=== PATIENT | female | born 1950 | race Caucasian/White ===

== ENCOUNTER 2018-10-24 15:44 | Emergency (ER) | payer MEDICARE, OTHER ==
[~2018-10-24] VITALS: Ht 172.7 cm; Wt 92.5 kg
[~2018-10-24 15:44] MED LIST: ALPR.5 PO; ASPI325 PO; ATOR20 PO; DIGO.25 PO; ESTPRO5; FENO145 PO; Glucophage1000 MG PO; INSULIN; LAVAP17G PO; LEVSOD100; LEVSOD75 PO; LISI5 PO; MECL25 PO; METO50 PO; Norco 5-325 Ta1 EACH PO; PROM25 PO; RANI150 PO; SERT50 PO
[2018-10-24] MEDS ORDERED: Fleet Enema132 ML PR (17:44)
[2018-10-24] MEDS ORDERED: Miralax17 GM PO (17:44)
== END 2018-10-24 17:55 | disposition home or self-care (01) ==
LOC: ER 15:44
DX: K59.00 Constipation, unspecified (principal); Z79.899 Other long term (current) drug therapy; Z79.84 Long term (current) use of oral hypoglycemic drugs; Z79.82 Long term (current) use of aspirin; I48.91 Unspecified atrial fibrillation; E11.9 Type 2 diabetes mellitus without complications
CPT/HCPCS: 74019; 99283-25

== ENCOUNTER → 2020-04-26 | Outpatient (CLI) | payer MEDICARE, OTHER ==
[~2020-04-26] MED LIST changes: +Fleet Enema132 ML PR; +Miralax17 GM PO
== END | disposition home or self-care (01) ==
LOC: LAB SHORT 10:17 → LAB EV 10:17
DX: L08.9 Local infection of the skin and subcutaneous tissue, unspecified (principal)
CPT/HCPCS: 87070; 87077; 87147; 87186; 87205

== ENCOUNTER 2025-01-07 18:10 | Inpatient (IN) | payer MEDICARE, OTHER ==
[~2025-01-07] VITALS: Ht 175.3 cm; Wt 115.3 kg
[~2025-01-07 18:10] MED LIST changes: +LEVSOD150 PO; -LEVSOD75 PO; +METO100ER PO; -METO50 PO
[2025-01-07 18:56] LABS: BASOPHILS ABSOLUTE AUTO 0.03 K/mm3 (0.00-0.23); BASOPHILS PERCENT AUTO 0 % (0-2); EOSINOPHILS ABSOLUTE AUTO 0.04 K/mm3 (0.00-0.68); EOSINOPHILS PERCENT AUTO 0 % (0-6); Hematocrit 38.4 % (33.0-51.0); Hemoglobin 11.7 g/dL (11.5-16.0); IMMATURE GRAN ABSOLUTE AUTO 0.04 K/mm3 (0.00-0.10); IMMATURE GRAN PERCENT AUTO 0 % (0-1); LYMPHOCYTES PERCENT AUTO 8 % (21-46); MONOCYTES ABSOLUTE AUTO 0.77 K/mm3 (0.16-1.47); MONOCYTES PERCENT AUTO 7 % (4-13); Mean Corpuscular HGB 29.3 pg (26.0-34.0); Mean Corpuscular HGB Conc 30.5 g/dL (31.5-36.5); Mean Corpuscular Volume 96 fL (80-100); Mean Platelet Volume 10.2 fL (9.1-12.4); NEUTROPHILS ABSOLUTE AUTO 9.39 K/mm3 (1.96-9.15); NEUTROPHILS PERCENT AUTO 84 % (41-73); Platelet Count 165 K/mm3 (150-400); RDW Coefficient Variation 16.4 % (11.7-14.2); RDW Standard Deviation 57.5 fL (35.1-46.3); White Blood Cell Count 11.17 K/mm3 (4.00-11.30)
[2025-01-07 19:32] LABS: Influenza A, PCR NEGATIVE (NEGATIVE); Influenza B, PCR NEGATIVE (NEGATIVE); Resp Syncytial Virus, PCR NEGATIVE (NEGATIVE); SARS-Cov-2 (COVID-19) PCR, MMC NEGATIVE (NEGATIVE)
[2025-01-07 20:09] LABS: Albumin, Blood 2.7 g/dL (3.4-5.0); Bilirubin, Total 1.4 mg/dL (0.1-1.0); Bun/Creatinine Ratio 26.2 (12.0-20.0); Calcium, Blood 6.1 mg/dL (8.5-10.1); Creatinine, Blood 1.07 mg/dL (0.40-1.00); Globulin, Blood 2.8 g/dL (2.2-4.0); Potassium, Blood 3.6 mmol/L (3.5-5.5); Total Protein, Blood 5.5 g/dL (6.4-8.2)
[2025-01-07] MEDS ORDERED: Ipratropium/Albuterol SulF 2.5-0.5MG/3 ML Amp INH ONE (23:40)
[2025-01-08 00:34] LABS: Source, Urine Voided
[2025-01-08 00:38] LABS: Bilirubin, Urine Neg (Neg); Blood, Urine 4+ (Neg); Glucose Qualitative, Urine Neg (Neg); Ketones, Urine Neg (Neg); Leukocyte Esterase, Urine 2+ (Neg); Nitrite, Urine Pos (Neg); Protein, Urine 2+ (Neg); Specific Gravity, Urine 1.025 (1.003-1.022); Urobilinogen, Urine 1+ (Normal)
[2025-01-08 00:50] LABS: Appearance, Urine Hazy (Clear); Color, Urine Yellow (P-Yellow)
[2025-01-08 00:51] LABS: Bacteria Many /hpf; Red Blood Cells, Urine 0-2 /hpf (0-2); Squamous Epithelial Cells Rare /hpf (Few)
[2025-01-08] MEDS ORDERED: CefTRIAXone Sodium 2,000 MG in NS 100 ML IV ONE (01:10)
[2025-01-08] MEDS ORDERED: Ondansetron HCl 2 MG / ML 2ML Vial IV PRN (02:15)
[2025-01-08] MEDS ORDERED: Acetaminophen 325 MG TABLET PO PRN (02:15)
[2025-01-08 04:33] LABS: BASOPHILS ABSOLUTE AUTO 0.03 K/mm3 (0.00-0.23); BASOPHILS PERCENT AUTO 0 % (0-2); EOSINOPHILS PERCENT AUTO 0 % (0-6); Hematocrit 36.4 % (33.0-51.0); Hemoglobin 11.5 g/dL (11.5-16.0); IMMATURE GRAN ABSOLUTE AUTO 0.05 K/mm3 (0.00-0.10); IMMATURE GRAN PERCENT AUTO 0 % (0-1); LYMPHOCYTES ABSOLUTE AUTO 1.27 K/mm3 (0.84-5.20); LYMPHOCYTES PERCENT AUTO 10 % (21-46); MONOCYTES ABSOLUTE AUTO 1.03 K/mm3 (0.16-1.47); MONOCYTES PERCENT AUTO 8 % (4-13); Mean Corpuscular HGB 29.5 pg (26.0-34.0); Mean Corpuscular HGB Conc 31.6 g/dL (31.5-36.5); Mean Corpuscular Volume 93 fL (80-100); Mean Platelet Volume 9.8 fL (9.1-12.4); NEUTROPHILS ABSOLUTE AUTO 11.03 K/mm3 (1.96-9.15); NEUTROPHILS PERCENT AUTO 82 % (41-73); Platelet Count 146 K/mm3 (150-400); RDW Coefficient Variation 16.4 % (11.7-14.2); RDW Standard Deviation 55.8 fL (35.1-46.3); White Blood Cell Count 13.41 K/mm3 (4.00-11.30)
[2025-01-08 04:34] VITALS: BP 125/74
[2025-01-08 05:08] LABS: Albumin, Blood 3.1 g/dL (3.4-5.0); Albumin/Globulin Ratio 0.9 (0.8-1.8); Bilirubin, Total 1.6 mg/dL (0.1-1.0); Calcium, Blood 7.2 mg/dL (8.5-10.1); Creatinine, Blood 1.29 mg/dL (0.40-1.00); Globulin, Blood 3.3 g/dL (2.2-4.0); Magnesium, Blood 1.2 mg/dL (1.6-2.4); Potassium, Blood 4.3 mmol/L (3.5-5.5); Total Protein, Blood 6.4 g/dL (6.4-8.2)
--- NOTE | 2025-01-08 05:37 | NUR ---
ADMIT RECEIVED FROM ERPT A&OX4, HEEL SEAT SANDER=X4, PUPILS ROUND REACTIVE TO LIGHT. PT HAS SCATTERED SMALL BRUISES ON ABD, SCATTERED SMALL SCABS. SCAB TO L ELBOS, RED RASH TO R ARMIT AND DRY WOUND TO R ANTERIOR FOOT. PT HAS HEMOSIDERIN STAINING IN BLE WITH PITTING EDEMA. PT REPORTS SHE BRICEÑO SNOT FEEL THAT SHE IS MICKI TO TAKE CARE OF HERSELF AT HOME AND WAS WANTING TO LOOK AT PLACEMENT IN AN ASSISTED LIVING FACILITY. 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 PT REPORTS A DRY COUGH AT TIMES, IS ON 2L NC BUT DOES NOT USE HOME O2. ABD SNT, BLBS=CTA, HRR.
[2025-01-08 07:22] VITALS: BP 122/77
[2025-01-08] MEDS ORDERED: Furosemide 10 MG / ML 2ML Vial IV SCH (09:00)
[2025-01-08] MEDS ORDERED: Enoxaparin 40 MG/0.4 ML SYR SC SCH (09:00)
[2025-01-08] MEDS ORDERED: Magnesium Sulf 2 GM/Water 50ML 50 ML IV ONE (09:10)
[2025-01-08] MEDS ORDERED: NS 250 ML IV PRN (09:20)
[2025-01-08] MEDS ORDERED: Miconazole Nitrate 2% 85 GM PWD TOP SCH (09:20)
[2025-01-08 16:03] VITALS: BP 121/76
--- NOTE | 2025-01-08 18:02 | NUR ---
SHIFT SUMMARY PT REFUSED TO GET OOB TODAY. INCONT OF URINE AND ATTENDS CHANGED T/O DAY NEEDED ALONG WITH REPOSITIONING. PT ASSISTS WITH REPOSITIONING. DESAT ON RA WHEN TRIALED TO THE MID 80S. SATING WELL IN THE 90S ON 2L O2 VIA NC. NO OTHER ACUTE CHANGES IN ASSESSMENT AT THIS TIME. VS REVIEWED. CALL LIGHT IN REACH. DENIES OTHER NEEDS AT THIS TIME.
[2025-01-08 19:28] VITALS: BP 116/71
[2025-01-08] MEDS ORDERED: Insulin Glargine-Yfgn 100 Unit/mL 3 ML SYR SC SCH (21:00)
[2025-01-08] MEDS ORDERED: CefTRIAXone Sodium 1,000 MG in NS 100 ML IV SCH (21:00)
--- NOTE | 2025-01-09 03:31 | NUR ---
SHIFT SUMMARY: A&OX4. PT LUNG SOUNDS WERE CLEAR TO DIMINISHED IN THE BASES. WEANED PT O2 TO 1L THIS SHIFT. 1+ EDEMA NOTED TO BLE, LEGS ELEVATED WITH PILLOWS. DENIES ANY RESPIRATORY DISTRESS, CP, OR PAIN. PT EXPRESSED NO OTHER CONCERNS AT THIS TIME. CALL LIGHT IS WITHIN REACH. BED ALARM IS ON. BED IS LOW AND LOCKED.
[2025-01-09 05:08] VITALS: BP 123/91
[2025-01-09] MEDS ORDERED: Levothyroxine Sodium 0.15 MG Tab PO SCH (06:00)
[2025-01-09 06:26] LABS: BASOPHILS ABSOLUTE AUTO 0.02 K/mm3 (0.00-0.23); BASOPHILS PERCENT AUTO 0 % (0-2); EOSINOPHILS ABSOLUTE AUTO 0.13 K/mm3 (0.00-0.68); EOSINOPHILS PERCENT AUTO 2 % (0-6); Hematocrit 36.4 % (33.0-51.0); Hemoglobin 11.4 g/dL (11.5-16.0); IMMATURE GRAN ABSOLUTE AUTO 0.04 K/mm3 (0.00-0.10); IMMATURE GRAN PERCENT AUTO 1 % (0-1); LYMPHOCYTES ABSOLUTE AUTO 1.11 K/mm3 (0.84-5.20); LYMPHOCYTES PERCENT AUTO 14 % (21-46); MONOCYTES ABSOLUTE AUTO 0.72 K/mm3 (0.16-1.47); MONOCYTES PERCENT AUTO 9 % (4-13); Mean Corpuscular HGB 29.5 pg (26.0-34.0); Mean Corpuscular HGB Conc 31.3 g/dL (31.5-36.5); Mean Corpuscular Volume 94 fL (80-100); NEUTROPHILS ABSOLUTE AUTO 6.03 K/mm3 (1.96-9.15); NEUTROPHILS PERCENT AUTO 75 % (41-73); Platelet Count 133 K/mm3 (150-400); RDW Coefficient Variation 16.4 % (11.7-14.2); RDW Standard Deviation 56.5 fL (35.1-46.3); Red Blood Cell Count 3.86 M/mm3 (3.80-5.20); White Blood Cell Count 8.05 K/mm3 (4.00-11.30)
[2025-01-09 06:48] LABS: Bun/Creatinine Ratio 24.8 (12.0-20.0); Calcium, Blood 7.5 mg/dL (8.5-10.1); Creatinine, Blood 1.25 mg/dL (0.40-1.00); Potassium, Blood 3.9 mmol/L (3.5-5.5)
[2025-01-09 07:27] VITALS: BP 133/90
[2025-01-09] MEDS ORDERED: Docusate Sodium/Senna 1 Tab PO PRN (07:45)
[2025-01-09] MEDS ORDERED: Furosemide 10 MG/ML 4ML Vial IV SCH (09:00)
[2025-01-09] MEDS ORDERED: Metoprolol Succinate 50 MG TABCR PO SCH (09:00)
[2025-01-09] MEDS ORDERED: Rivaroxaban 10 MG Tab PO SCH (09:00)
[2025-01-09] MEDS ORDERED: Atorvastatin 10 MG Tab PO SCH (09:00)
[2025-01-09] MEDS ORDERED: Bisacodyl 5 MG TabEC PO PRN (12:25)
[2025-01-09] MEDS ORDERED: Bisacodyl 10 MG Supp PR PRN (12:25)
[2025-01-09 14:08] VITALS: BP 91/75
--- NOTE | 2025-01-09 18:19 | NUR ---
SUMMARY- PT A/O X4, PLEASANT AND COOPERATIVE. UP TODAY TO THE BEDSIDE COMMODE THAN TO THE CHAIR WITH 2 PERSON SBA, GAIT/WALKER PIVOT TX. PT SAT UP IN THE CHAIR FOR ALL 3 MEALS. PT HAS LE EDEMA, DIURESING ON LASIX. STARTED MEDS FOR BOWEL CARE, VERY SMALL RESULTS SO FAR. INCONT FOR MOST PART,USING A PUREWICK. VSS. PLAN FOR SNF [place] LIKELY TOMORROW. WILL REPORT TO NADIR GIANG.
[2025-01-09 19:31] VITALS: BP 130/89
[2025-01-09] MEDS ORDERED: Polyethylene Glycol 3350 17 gm PO SCH (21:00)
--- NOTE | 2025-01-10 02:22 | NUR ---
ATTEMPTED TO WEAN PT TO ROOM AIR, BUT O2 SATS DROPPED FROM MID 90'S TO 85%. 02 AT 1L NC CONTINUES WITH O2 SATS LOW TO MID 90'S.
[2025-01-10 04:38] VITALS: BP 130/84
--- NOTE | 2025-01-10 06:09 | NUR ---
SHIFT SUMMARY PT SLEPT LONG INTERVALS DURING THE NIGHT. BOWEL CARE PROVIDED YESTERDAY AND PT HAD SMALL SOFT INCONT STOOL DURING THE NIGHT. PUREWICK DRAINING YELLOW URINE. DRESSING TO RIGHT ANKLE C/D/I. BED IN LOWEST POSITION, CALL LIGHT WITHIN REACH, SIDERAILS UP X3.
[2025-01-10 06:10] LABS: BASOPHILS ABSOLUTE AUTO 0.02 K/mm3 (0.00-0.23); BASOPHILS PERCENT AUTO 0 % (0-2); EOSINOPHILS ABSOLUTE AUTO 0.14 K/mm3 (0.00-0.68); EOSINOPHILS PERCENT AUTO 2 % (0-6); Hematocrit 33.5 % (33.0-51.0); Hemoglobin 10.6 g/dL (11.5-16.0); IMMATURE GRAN ABSOLUTE AUTO 0.02 K/mm3 (0.00-0.10); IMMATURE GRAN PERCENT AUTO 0 % (0-1); LYMPHOCYTES ABSOLUTE AUTO 1.08 K/mm3 (0.84-5.20); LYMPHOCYTES PERCENT AUTO 17 % (21-46); MONOCYTES PERCENT AUTO 11 % (4-13); Mean Corpuscular HGB 29.7 pg (26.0-34.0); Mean Corpuscular HGB Conc 31.6 g/dL (31.5-36.5); Mean Corpuscular Volume 94 fL (80-100); Mean Platelet Volume 10.3 fL (9.1-12.4); NEUTROPHILS ABSOLUTE AUTO 4.25 K/mm3 (1.96-9.15); NEUTROPHILS PERCENT AUTO 68 % (41-73); Platelet Count 133 K/mm3 (150-400); Red Blood Cell Count 3.57 M/mm3 (3.80-5.20); White Blood Cell Count 6.21 K/mm3 (4.00-11.30)
[2025-01-10 06:29] LABS: Bun/Creatinine Ratio 23.9 (12.0-20.0); Calcium, Blood 7.3 mg/dL (8.5-10.1); Creatinine, Blood 1.13 mg/dL (0.40-1.00); Potassium, Blood 3.9 mmol/L (3.5-5.5)
[2025-01-10 07:51] VITALS: BP 127/84
--- NOTE | 2025-01-10 10:37 | NUR ---
RN NOTE 3 ATTEMPTS TO WEAN OFF 1L NC THIS SHIFT. LAST TIME AFTER SITTING UP IN CHAIR IN UPRIGHT POSITION. EACH TIME SATS DROPPED TO THE 80S, SOMETIMES 70S WITH GOOD WAVEFORM. O2 SAT RETURNED TO 90S QUICKLY ON 1L NC. ON CONTINUOUS PULSE OX.
[2025-01-10 14:47] VITALS: BP 129/75
--- NOTE | 2025-01-10 15:23 | NUR ---
Shift Summary Ms Lawrence is orientated x4. She has been up to the recliner twice today. She had some difficulty getting out of the bed, needing 2 people to assist, but once up with the walker and gait belt she was able to take several steps, maintaining her balance, she was able to sit safely in the recliner. Unable to wean off 1L nc oxygen today. Powerglide placed and CTPE done. Incontinent of urine, good volume, pure wick effective. Incontinent of small soft stool. Plan [facility]. in chair now, call light in reach.
--- NOTE | 2025-01-10 17:31 | NUR ---
Report given to Amber GIANG
[2025-01-10 17:48] VITALS: BP 154/83
[2025-01-10] MEDS ORDERED: Furosemide 10 MG/ML 4ML Vial IV SCH ×2 (18:00)
--- NOTE | 2025-01-10 18:23 | NUR ---
SHIFT SUMMARY TOOK OVER CARE FOR PREVIOUS RN., GOT REPORT FROM NURSE. PT A&OX4. PT ADMITTED DUE TO ACUTE RESP FAILURE WITH HYPOXIA. PT ON 1L OF O2 VIA N/C. PT TOOK OFF NC WHILE EATING AND PT DESATTED TO 80 S%. PT EDUCATED ON N/C USE. N/C IN NOSE. PT SATS 90%. THIS RN GAVE 1800 LASIX DOSE. PT SITTING COMFORTABLY IN CHAIR. CALL LIGHT IN REACH.
[2025-01-10 19:38] VITALS: BP 130/90
[2025-01-11 04:22] VITALS: BP 124/82
[2025-01-11 07:34] LABS: BASOPHILS ABSOLUTE AUTO 0.03 K/mm3 (0.00-0.23); BASOPHILS PERCENT AUTO 1 % (0-2); EOSINOPHILS ABSOLUTE AUTO 0.17 K/mm3 (0.00-0.68); EOSINOPHILS PERCENT AUTO 3 % (0-6); Hematocrit 32.5 % (33.0-51.0); Hemoglobin 10.2 g/dL (11.5-16.0); IMMATURE GRAN ABSOLUTE AUTO 0.01 K/mm3 (0.00-0.10); IMMATURE GRAN PERCENT AUTO 0 % (0-1); LYMPHOCYTES PERCENT AUTO 21 % (21-46); MONOCYTES ABSOLUTE AUTO 0.75 K/mm3 (0.16-1.47); MONOCYTES PERCENT AUTO 13 % (4-13); Mean Corpuscular HGB 29.4 pg (26.0-34.0); Mean Corpuscular HGB Conc 31.4 g/dL (31.5-36.5); Mean Corpuscular Volume 94 fL (80-100); Mean Platelet Volume 10.1 fL (9.1-12.4); NEUTROPHILS ABSOLUTE AUTO 3.58 K/mm3 (1.96-9.15); NEUTROPHILS PERCENT AUTO 62 % (41-73); Platelet Count 142 K/mm3 (150-400); RDW Coefficient Variation 15.9 % (11.7-14.2); RDW Standard Deviation 55.2 fL (35.1-46.3); Red Blood Cell Count 3.47 M/mm3 (3.80-5.20); White Blood Cell Count 5.74 K/mm3 (4.00-11.30)
[2025-01-11 07:58] LABS: Calcium, Blood 7.4 mg/dL (8.5-10.1); Creatinine, Blood 1.13 mg/dL (0.40-1.00); Phosphorus, Blood 2.9 mg/dL (2.5-4.9); Potassium, Blood 3.9 mmol/L (3.5-5.5)
[2025-01-11 07:59] VITALS: BP 114/68
[2025-01-11 07:59] LABS: Magnesium, Blood 0.9 mg/dL (1.6-2.4)
[2025-01-11] MEDS ORDERED: Doxycycline Hyclate 100 MG TAB PO SCH (09:00)
[2025-01-11] MEDS ORDERED: Magnesium Sulf 2 GM/Water 50ML 50 ML IV ONE ×2 (09:25→21:40)
[2025-01-11 15:00] VITALS: BP 143/83
[2025-01-11 19:34] VITALS: BP 127/80
--- NOTE | 2025-01-11 19:41 | NUR ---
NO ACUTE CHANGES, REPORT TO PM RN, PT TO WORK WITH PATIENT, WAITING FOR PLACEMENT
[2025-01-12 03:40] VITALS: BP 117/80
--- NOTE | 2025-01-12 06:22 | NUR ---
SHIFT SUMMARY A&OX3-4. VSS. WITH POWERGLIDE GOOD FLOW. STILL AWAITS PLACEMENT AND FURTHER PLANS. WITH O2 1LPM ON CONT PULSE OXI MONITOR. HIGHLY INCONTINENT WITH PURWICK AND REPLACED. L KNEES EXTREMELY HURT WHEN TURNING. SLEPT WELL THROUGH NIGHT W/O ANY PROBLEM.
[2025-01-12 06:36] LABS: BASOPHILS ABSOLUTE AUTO 0.03 K/mm3 (0.00-0.23); BASOPHILS PERCENT AUTO 0 % (0-2); EOSINOPHILS ABSOLUTE AUTO 0.11 K/mm3 (0.00-0.68); EOSINOPHILS PERCENT AUTO 1 % (0-6); Hematocrit 35.1 % (33.0-51.0); Hemoglobin 10.9 g/dL (11.5-16.0); IMMATURE GRAN ABSOLUTE AUTO 0.03 K/mm3 (0.00-0.10); IMMATURE GRAN PERCENT AUTO 0 % (0-1); LYMPHOCYTES ABSOLUTE AUTO 1.35 K/mm3 (0.84-5.20); LYMPHOCYTES PERCENT AUTO 16 % (21-46); MONOCYTES ABSOLUTE AUTO 1.12 K/mm3 (0.16-1.47); MONOCYTES PERCENT AUTO 14 % (4-13); Mean Corpuscular HGB 29.5 pg (26.0-34.0); Mean Corpuscular HGB Conc 31.1 g/dL (31.5-36.5); Mean Corpuscular Volume 95 fL (80-100); Mean Platelet Volume 10.3 fL (9.1-12.4); NEUTROPHILS ABSOLUTE AUTO 5.59 K/mm3 (1.96-9.15); NEUTROPHILS PERCENT AUTO 68 % (41-73); Platelet Count 155 K/mm3 (150-400); RDW Coefficient Variation 15.9 % (11.7-14.2); RDW Standard Deviation 55.4 fL (35.1-46.3); Red Blood Cell Count 3.69 M/mm3 (3.80-5.20); White Blood Cell Count 8.23 K/mm3 (4.00-11.30)
[2025-01-12 06:55] LABS: Calcium, Blood 7.5 mg/dL (8.5-10.1); Creatinine, Blood 1.13 mg/dL (0.40-1.00); Magnesium, Blood 1.4 mg/dL (1.6-2.4)
[2025-01-12 07:40] VITALS: BP 121/91
[2025-01-12] MEDS ORDERED: Magnesium Sulf 2 GM/Water 50ML 50 ML IV ONE (10:35)
[2025-01-12 16:29] VITALS: BP 117/70
--- NOTE | 2025-01-12 17:31 | NUR ---
NO ACUTE CHANGES, PATIENT VOICED WANTING TO NOT BE A FULL CODE AND POSSIBLE HAVING PALLIATIVE CARE, PALLIATIVE CARE CONSULT ENTERED AND SPOKE WITH ROMÁN MULLIGAN, PAPER INFORMATION GIVEN TO PATIENT. PATIENT REPORTS FEELING DEPRESSED WITHOUT LIVING FAMILY AND DOG. PATIENT 10/10 PAIN WITH MINIMALY MOVEMENT, PURWIK INTACT, ICE TO RIGHT KNEE, VSS, WILL RELAY TO PM RN
[2025-01-12 19:07] VITALS: BP 139/77
[2025-01-13 04:47] VITALS: BP 114/66
--- NOTE | 2025-01-13 05:11 | NUR ---
NOC SUMMARY PT A&OX4, PLEASANT AND COOPERATIVE W/CARES, VSS, REMAINS ON 1L O2 W/SATS @ 94%, CURRENTLY USING PURWICK FOR VOIDING, DENIES PAIN BUT ENDORSES PAIN W/REPOSITIONING, SLEEPING AT THIS TIME, CALL LIGHT IN REACH, WILL CONT TO MONITOR UNTIL REPORT GIVEN TO ONCOMING NURSE.
[2025-01-13 05:41] LABS: BASOPHILS ABSOLUTE AUTO 0.02 K/mm3 (0.00-0.23); BASOPHILS PERCENT AUTO 0 % (0-2); EOSINOPHILS ABSOLUTE AUTO 0.04 K/mm3 (0.00-0.68); EOSINOPHILS PERCENT AUTO 1 % (0-6); Hematocrit 32.1 % (33.0-51.0); Hemoglobin 10.1 g/dL (11.5-16.0); IMMATURE GRAN ABSOLUTE AUTO 0.03 K/mm3 (0.00-0.10); IMMATURE GRAN PERCENT AUTO 0 % (0-1); LYMPHOCYTES PERCENT AUTO 15 % (21-46); MONOCYTES ABSOLUTE AUTO 1.22 K/mm3 (0.16-1.47); MONOCYTES PERCENT AUTO 14 % (4-13); Mean Corpuscular HGB 29.5 pg (26.0-34.0); Mean Corpuscular HGB Conc 31.5 g/dL (31.5-36.5); Mean Corpuscular Volume 94 fL (80-100); Mean Platelet Volume 10.1 fL (9.1-12.4); NEUTROPHILS ABSOLUTE AUTO 5.91 K/mm3 (1.96-9.15); NEUTROPHILS PERCENT AUTO 69 % (41-73); Platelet Count 147 K/mm3 (150-400); RDW Coefficient Variation 15.6 % (11.7-14.2); RDW Standard Deviation 54.3 fL (35.1-46.3); Red Blood Cell Count 3.42 M/mm3 (3.80-5.20); White Blood Cell Count 8.52 K/mm3 (4.00-11.30)
[2025-01-13 06:09] LABS: Magnesium, Blood 1.5 mg/dL (1.6-2.4)
[2025-01-13 06:10] LABS: Bun/Creatinine Ratio 25.7 (12.0-20.0); Calcium, Blood 7.5 mg/dL (8.5-10.1); Creatinine, Blood 1.09 mg/dL (0.40-1.00); Potassium, Blood 3.7 mmol/L (3.5-5.5)
[2025-01-13 07:05] VITALS: BP 106/62
[2025-01-13] MEDS ORDERED: Magnesium Sulf 2 GM/Water 50ML 50 ML IV STA (11:53)
--- NOTE | 2025-01-13 15:17 | NUR ---
PALLIATIVE CARE VISIT: REVIEWED MEDICAL RECORD, SPOKE TO PRIMARY RN, PRIOR TO VISIT. PRIMARY RN INDICATED PT WAS INQUIRING ABOUT END OF LIFE CARE. REVIEWED MEDICAL RECORD FOR HOSPICE ELIGIBILTY AND PT DOES NOT CURRENTLY MEET CRITERIA FOR ADMISSION TO HOSPICE. MET WITH PT IN HER ROOM. PT IS A/O X 4 AND AGREEABLE TO DISCUSS GOALS OF CARE AND AD/POLST COMPLETION. PT REPORTED YESTERDAY SHE FELT LIKE SHE WAS DYING AND WANTED TO GIVE UP. SHE STATES "I FELT DEPRESSED AND WAS SORRY FOR MYSELF". TODAY PT STATES SHE IS JUST FEELING NERVOUS ABOUT THE NEXT PHASE OF HER LIFE MOVING TO ASSISTED LIVING AND ALL THE THINGS SHE HAS TO DO BUT SHE DOES NOT FEEL LIKE SHE IS DYING, NOR DOES SHE WANT TO. PT STATES SHE GAVE HER DOG TO HER LANDLORD AND IS STARTING TO PLAN NEXT STEPS TO SELL HER FIFTH WHEEL BECAUSE SHE CANNOT LIVE IN IT ANY LONGER DUE TO FREQUENT FALLS DOWN THE STEPS. PT INFORMED SHE DOES NOT MEET CRITERIA FOR ADMISSION TO HOSPICE SERVICES. PT STATED SHE HAD CHANGED HER MIND ANYHOW ABOUT HOSPICE. DISCUSSED AD, POLST WITH PT. PT WILL LOOK OVER AD BEFORE MAKING A DECISION. OFFERED ASSISTANCE WHEN SHE WAS READY TO COMPLETE. PT AGREEABLE TO COMPLETING A POLST. EDUCATED PT ON DNR VS FULL CODE. PT ELECTS TO BE DNR. EDUCATED OON SECTION B AND PT COSE SELECTIVE TREATMENT. POLST COMPLETED. PT SEEKING RE-ASSURANCE SHE WAS MAKING "RIGHT DECISIONS". PROVIDED PT WITH MORAL AND EMOTIONAL SUPPORT. DISCUSSED METHODS OF MANAGING HER SITUATIONAL ANXIETY. PT REMINISCED ABOUT HER LIFE WHEN SHE WAS YOUNGER AND STATED SHE HAD A GOOD LIFE. UPDATED PRIMARY RN AND MD WITH ABOVE INFORMATION. MD AGREEABLE TO CODE STATUS CHANGED TO DNR.
[2025-01-13 16:20] VITALS: BP 119/60
--- NOTE | 2025-01-13 16:33 | NUR ---
NO ACUTE CHANGES, PALLIATIVE CARE CONSULTED, PATIENT REPORTS FEELING HAPPER, CODE STATUS XHANGED FROM FULL TO DNR, FRIEND VISITED TODAY, ONLY SMEARS FOR BM, MAG 1.5 AND MORE IV MAG INFUSED, ALERT AND ORIENTEDX3, FORGETFUL AT TIMES, CALL LIGHT WITH IN REACH
[2025-01-13 19:29] VITALS: BP 114/61
[2025-01-14 04:00] VITALS: BP 110/56
--- NOTE | 2025-01-14 04:03 | NUR ---
SHIFT SUMMARY: A&OX4. PT CURRENTLY ON 2L O2 VIA NC. WHILE ASLEEP PT REMOVED HER NC, ON RA PT SPO2 DROPPED TO 65%. DENIED SOB OR CP. PT IS CURRENTLY SATTING AT 95%. LUNG SOUNDS ARE CLEAR TO DIMINISHED IN THE BASES. PT EXPRESSED NO CONCERNS AT THIS TIME. CALL LIGHT IS WITHIN REACH. BED IS LOW AND LOCKED. BED ALARM IS ON.
[2025-01-14 05:57] LABS: BASOPHILS ABSOLUTE AUTO 0.02 K/mm3 (0.00-0.23); BASOPHILS PERCENT AUTO 0 % (0-2); EOSINOPHILS ABSOLUTE AUTO 0.14 K/mm3 (0.00-0.68); EOSINOPHILS PERCENT AUTO 2 % (0-6); Hematocrit 31.2 % (33.0-51.0); Hemoglobin 9.5 g/dL (11.5-16.0); IMMATURE GRAN ABSOLUTE AUTO 0.03 K/mm3 (0.00-0.10); IMMATURE GRAN PERCENT AUTO 0 % (0-1); LYMPHOCYTES ABSOLUTE AUTO 1.21 K/mm3 (0.84-5.20); LYMPHOCYTES PERCENT AUTO 16 % (21-46); MONOCYTES ABSOLUTE AUTO 0.87 K/mm3 (0.16-1.47); MONOCYTES PERCENT AUTO 11 % (4-13); Mean Corpuscular HGB 28.8 pg (26.0-34.0); Mean Corpuscular HGB Conc 30.4 g/dL (31.5-36.5); Mean Corpuscular Volume 95 fL (80-100); Mean Platelet Volume 9.9 fL (9.1-12.4); NEUTROPHILS ABSOLUTE AUTO 5.54 K/mm3 (1.96-9.15); NEUTROPHILS PERCENT AUTO 71 % (41-73); Platelet Count 156 K/mm3 (150-400); RDW Coefficient Variation 15.8 % (11.7-14.2); RDW Standard Deviation 54.7 fL (35.1-46.3); White Blood Cell Count 7.81 K/mm3 (4.00-11.30)
[2025-01-14 06:21] LABS: Bun/Creatinine Ratio 29.2 (12.0-20.0); Calcium, Blood 8.2 mg/dL (8.5-10.1); Creatinine, Blood 1.13 mg/dL (0.40-1.00); Potassium, Blood 3.7 mmol/L (3.5-5.5)
[2025-01-14 07:16] VITALS: BP 109/62
--- NOTE | 2025-01-14 13:15 | NUR ---
Spiritual care visit conducted. The patient is alert and oriented and welcomes a spiritual care visit. She immediately shares about her DNR status and her lack of motivation to keep living and how she does not want to prolong her life. She states without family (her spouse 5 yrs ago) and purpose, she is "Ready to be done." We explore sources of meaning and purpose, her spiritual beliefs and her strong friend connections. She also talks about the need to sell her 5th wheel and car because she would like to move into [facility]. I normalized her experience, reinforced helpful attitudes and practices, and provided grief support, anxieity containment, theological insights, and prayer. The patient responded well and showed signs of an greater hope for living and peace for the afterlife.
[2025-01-14 15:40] VITALS: BP 113/66
--- NOTE | 2025-01-14 18:24 | NUR ---
SHIFT SUMMARY PT AOX4, 2P MAX ASSIST IN THE BED. REPOSITIONED THROUGHOUT THE SHIFT. PT CURRENTLY ON 2L NC, NO ISSUES WITH DESATING THIS SHIFT. PT CALLS AND MAKES HER NEEDS KNOWN. MODERATE BM THIS SHIFT. CALL LIGHT WITHIN REACH, BED LOCKED AND IN THE LOWEST POSITION. WILL REPORT TO ONCOMING NURSE.
[2025-01-14 20:26] VITALS: BP 120/72
[2025-01-15 01:46] VITALS: BP 100/60
--- NOTE | 2025-01-15 04:31 | NUR ---
SHIFT SUMMARY; PATIENT SLEPT IN LONG INTERVALS, WAS NOT UP. REPOSITIONED Q2 HRS. O2/2L/NC ALL NIGHT. DID NOT NEED ANY PRN MEDS TONIGHT.
[2025-01-15 05:59] LABS: BASOPHILS ABSOLUTE AUTO 0.03 K/mm3 (0.00-0.23); BASOPHILS PERCENT AUTO 0 % (0-2); EOSINOPHILS ABSOLUTE AUTO 0.15 K/mm3 (0.00-0.68); EOSINOPHILS PERCENT AUTO 2 % (0-6); Hematocrit 30.5 % (33.0-51.0); Hemoglobin 9.5 g/dL (11.5-16.0); IMMATURE GRAN ABSOLUTE AUTO 0.04 K/mm3 (0.00-0.10); IMMATURE GRAN PERCENT AUTO 1 % (0-1); LYMPHOCYTES ABSOLUTE AUTO 1.15 K/mm3 (0.84-5.20); LYMPHOCYTES PERCENT AUTO 17 % (21-46); MONOCYTES ABSOLUTE AUTO 0.67 K/mm3 (0.16-1.47); MONOCYTES PERCENT AUTO 10 % (4-13); Mean Corpuscular HGB 29.8 pg (26.0-34.0); Mean Corpuscular HGB Conc 31.1 g/dL (31.5-36.5); Mean Corpuscular Volume 96 fL (80-100); Mean Platelet Volume 9.7 fL (9.1-12.4); NEUTROPHILS ABSOLUTE AUTO 4.75 K/mm3 (1.96-9.15); NEUTROPHILS PERCENT AUTO 70 % (41-73); Platelet Count 186 K/mm3 (150-400); RDW Coefficient Variation 15.4 % (11.7-14.2); RDW Standard Deviation 54.6 fL (35.1-46.3); Red Blood Cell Count 3.19 M/mm3 (3.80-5.20); White Blood Cell Count 6.79 K/mm3 (4.00-11.30)
[2025-01-15 06:18] LABS: Anion Gap Unable to Calculate mmol/L (3-11); Blood Urea Nitrogen 33 mg/dL (8-24); Bun/Creatinine Ratio 28.4 (12.0-20.0); Calcium, Blood 8.3 mg/dL (8.5-10.1); Chloride, Blood 93 mmol/L (98-108); Creatinine, Blood 1.16 mg/dL (0.40-1.00); Glomerular Filtration Rate 50 (60-); Glucose, Blood 136 mg/dL (70-99); Potassium, Blood 3.9 mmol/L (3.5-5.5); Sodium, Blood 137 mmol/L (136-145)
[2025-01-15 06:20] LABS: CO2, Blood >45 mmol/L (21-32)
[2025-01-15 07:37] VITALS: BP 137/84
[2025-01-15 14:49] LABS: Base Excess Venous 19.4 mmol/L; Bicarbonate Venous 41.8 mmol/L (24.0-30.0); PCO2 Venous 42.9 mmHg (38-42)
[2025-01-15 14:52] LABS: pH Blood Venous 7.59 (7.34-7.37)
--- NOTE | 2025-01-15 15:13 | NUR ---
NOTE: NOTIFIED PROVIDER, DR. AIKEN, OF CRITICAL HIGH LAB VALUE. PER PROVIDER, TURN OFF THE OXYGEN AND SHE WILL ORDER REPEAT VBG IN 4 HOURS. OXYGEN HAS BEEN TURNED OFF AND THE PT NOTIFIED.
--- NOTE | 2025-01-15 17:21 | NUR ---
SHIFT SUMMARY PT AOX4, 2 ASSIST TO THE CHAIR. DRESSING TO LL LEG CLEANED AND CHANGED THIS SHIFT. NO ACUTE COMPLAINTS. REMAINS ON 1-2 L, WILL DESAT DOWN TO THE HIGH 60'S-70'S AT TIMES. DR. AIKEN AWARE. PT INFORMED TO TAKE DEEP BREATHS WHEN THE CONTINUOUS PULSE OX SOUNDS, SHE BECAME A BIT DUSKY AT TIMES BUT RECOVERS WELL. PLAN IS FOR A SNF. UP TO THE CHAIR THIS SHIFT WITH A 2P ASSIST. REPOSITIONED THROUGHOUT THE SHIFT. CALL LIGHT WITHIN REACH, BED LOCKED AND IN THE LOWEST POSITION. WILL REPORT TO ONCOMING NURSE.
[2025-01-15 20:16] VITALS: BP 127/72
[2025-01-15 20:49] LABS: Base Excess Venous 18.9 mmol/L; Bicarbonate Venous 40.7 mmol/L (24.0-30.0); PCO2 Venous 58.3 mmHg (38-42); pH Blood Venous 7.47 (7.34-7.37)
--- NOTE | 2025-01-16 04:31 | NUR ---
SHIFT SUMMARY; STILL NEEDS O2 WHEN SLEEPING, SATS DROP WHEN THE NASAL CANNULA SLIPS OFF HER NOSE. OR SHE IS MOUTH BREATHING. REMAINED IN BED THIS SHIFT, PUREWICK TO KEEP HER DRY.
[2025-01-16 05:14] VITALS: BP 102/70
[2025-01-16 06:26] LABS: Bun/Creatinine Ratio 29.4 (12.0-20.0); Calcium, Blood 8.4 mg/dL (8.5-10.1); Creatinine, Blood 1.09 mg/dL (0.40-1.00); Potassium, Blood 3.7 mmol/L (3.5-5.5)
[2025-01-16 07:39] VITALS: BP 106/61
[2025-01-16 15:32] VITALS: BP 135/76
--- NOTE | 2025-01-16 17:35 | NUR ---
SHIFT SUMMARY: PT AOX4. PT IS A HEAVY TWO PERSON AST TO THE CHAIR. PT WAS UP IN THE CHAIR FROM THE START OF SHIFT UNTIL 1300. POWERGLIDE DRESS CHANGED TODAY. PT IS ON 1L O2 WITH A CONTINUE PULSE OX. PLAN IS FOR PT TO DISCHARGE TO SNF. CALL LIGHT IN REACH AND BED IN LOWEST POSITION.
[2025-01-16 19:26] VITALS: BP 129/73
[2025-01-17 03:38] VITALS: BP 109/70
--- NOTE | 2025-01-17 04:42 | NUR ---
SHIFT SUMMARY PATIENT SLEPT WELL THROUGHOUT THE NIGHT. VITAL SIGNS REMAINED STABLE WITH 1L VIA NC TO KEEP OXYGEN SATURATION ABOVE 90%. PURWICK IN PLACE TO PREVENT BREAKDOWN IN FRAN AREA DUE TO INCONTINENCE. CBG 169 NOC. REPOSITIONED Q2H. NO ACUTE EVENTS THROUGHOUT THE SHIFT. CALL LIGHT IN REACH, BED IN LOWEST POSITION. WILL REPORT TO DAYSHIFT RN.
[2025-01-17 06:09] LABS: Bun/Creatinine Ratio 29.5 (12.0-20.0); Calcium, Blood 8.2 mg/dL (8.5-10.1); Creatinine, Blood 1.05 mg/dL (0.40-1.00); Potassium, Blood 3.7 mmol/L (3.5-5.5)
[2025-01-17 07:47] VITALS: BP 120/74
[2025-01-17] MEDS ORDERED: ACET325 PO (11:36)
[2025-01-17] MEDS ORDERED: BISA10S PR (11:40)
[2025-01-17] MEDS ORDERED: DOCUZEN 8.6-501 EACH PO (11:40)
[2025-01-17] MEDS ORDERED: SEMGLEE (Y100 UNIT/2 SC (11:41)
[2025-01-17] MEDS ORDERED: MICONAZOLE NITR85 GM TOP (11:46)
[2025-01-17] MEDS ORDERED: MIRALAX17 GM PO (12:15)
[2025-01-17] MEDS ORDERED: XARELTO20 MG PO (12:15)
--- NOTE | 2025-01-17 13:19 | NUR ---
WOUND CARE: WOUND CARE COMPLETED ON RIGHT ANKLE. REMOVED PRIOR CURLEX AND ABD PAD OFF OF WOUND. WOUND IS CLEAN, DRY, AND INTACT. APPLIED MEPILEX DRESSING. PT DENIES PAIN TO ANKLE. ADIEL CASTRO.
--- NOTE | 2025-01-17 14:18 | NUR ---
PALLIATIVE CARE VISIT: MET WITH PT TO DISCUSS COMPLETION OF AD. 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 PLAN IS FOR PT TO TALK TO HER SISTER WHO LIVES IN [place] AND TOMORROW WILL MEET AGAIN AT 1 PM TO FURTHER DISCUSS/ASSIST WITH COMPLETING AD. PT DENIES PAIN, NAUSEA, CONSTIPATION, POOR APPETITE, SOB.
[2025-01-17 15:44] VITALS: BP 122/73
--- NOTE | 2025-01-17 15:45 | NUR ---
SHIFT SUMMARY: PT IS AOX4 AND PLEASENT AND COORAPATIVE WITH CARE. NO ACUTE CHANGES THIS SHIFT. PT WAS WEANED DOWN TO 0.5 L OF O2 SATING IN THE LOW 90S. CONT. BIOX IN PLACE. WOUND CARE DONE ON RIGHT ANKLE AND POWDER PLACED TO RASH ON RIGHT ARMPIT. PT MEDICATED PER EMAR. PT IS SCHEDULED TO LEAVE [facility] AT 0900 TOMORROW. MED REC IS COMPLETED. ENCOURAGED PT TO DRINK FLUIDS THROUGH OUT SHIFT.
[2025-01-17 20:21] VITALS: BP 120/61
[2025-01-18 05:39] VITALS: BP 118/64
--- NOTE | 2025-01-18 07:34 | NUR ---
SHIFT SUMMARY; PATIENT SLEEPS UNTIL SOMEONE WAKES HER, SHE DOES NOT DRINK WATER ALTHOUGH SHE HAS BEEN INSTRUCTED ON HOW IMPORTANT IT IS. I THINK SHE IS GIVEN UP AND WANTS TO . O2/1L/NC IS NEEDED TO KEEP SATS FROM DROPPING.
[2025-01-18 07:39] VITALS: BP 109/69
--- NOTE | 2025-01-18 09:14 | NUR ---
DISCHARGE PT AOX4, COOPERATIVE, UNSURE IF ABLE TO MAKE NEEDS KNOWN. IN REPORT, THIS RN WAS TOLD PT DOES NOT CALL FOR VOIDING NEEDS, THAT PT ELIMINATES IN HER BRIEF AND SITS IN IT. PT DID SEEM TO BE DECONDITIONED WHEN TRANSFERRING TO WHEEL CHAIR. PT ON 1 L O2. DID HOLD BM MEDS THIS AM, LAST BM WAS 01/17/25. REPORT GIVEN TO MIGDALIA OF [facility]. THIS RN TOLD [facility] RN THAT PT HAS POLST IN PACKET THAT NEEDS TO BE TAKEN TO PT HOME WHEN DC'D FROM [facility] PER SPRAY DRIER OPERATOR. POWERGLIDE REMOVED WITHOUT EVENTS.
== END 2025-01-18 09:00 | DRG 291 ==
LOC: ER 18:10 → MEDS 18:11
PROVIDERS: Emergency Medicine; Family Medicine; Internal Medicine; ADMIT Student in an Organized Health Care Education/Training Program
DX: I50.33 Acute on chronic diastolic (congestive) heart failure (principal); J96.01 Acute respiratory failure with hypoxia; I13.0 Hypertensive heart and chronic kidney disease with heart failure and stage 1 through stage 4 chronic kidney disease, or unspecified chronic kidney disease; I31.39 Other pericardial effusion (noninflammatory); E87.3 Alkalosis; I48.20 Chronic atrial fibrillation, unspecified; Z99.81 Dependence on supplemental oxygen; I27.20 Pulmonary hypertension, unspecified; I07.1 Rheumatic tricuspid insufficiency; E03.9 Hypothyroidism, unspecified; E66.9 Obesity, unspecified; Z66 Do not resuscitate; Z79.4 Long term (current) use of insulin; Z79.82 Long term (current) use of aspirin; Z79.890 Hormone replacement therapy; Z79.84 Long term (current) use of oral hypoglycemic drugs; Z79.899 Other long term (current) drug therapy; S90.511A Abrasion, right ankle, initial encounter; E11.22 Type 2 diabetes mellitus with diabetic chronic kidney disease; E11.42 Type 2 diabetes mellitus with diabetic polyneuropathy; N18.30 Chronic kidney disease, stage 3 unspecified; E78.5 Hyperlipidemia, unspecified; F32.A Depression, unspecified; E87.8 Other disorders of electrolyte and fluid balance, not elsewhere classified; H91.92 Unspecified hearing loss, left ear; W54.0XXA Bitten by dog, initial encounter; Z68.36 Body mass index [BMI] 36.0-36.9, adult
CPT/HCPCS: 0241U; 36415; 71045; 71260; 80048; 80053; 81001; 82803; 82947; 83690; 83735; 83880; 84100; 84145; 84484; 85025; 85379; 87086; 93005; 93010; 93306; 93970; 94762; 96365; 96372; 96375; 97110; 97162; 97530; 99285-25; A9270; G0378; J0696; J1650; J1815; J1938; J3475; J7050; Q9967